=== PATIENT | female | born 1975 | race Caucasian/White ===

== ENCOUNTER 2018-07-06 08:22 | Emergency (ER) | payer OTHER, SELFPAY ==
[2018-07-06] MEDS ORDERED: ALBUTEROL 2.5 MG/3 ML NEB SOL ONE (08:55)
[2018-07-06] MEDS ORDERED: IPRATROPIUM BROM 0.5MG/2.5ML ONE (08:56)
[2018-07-06] MEDS ORDERED: predniSONE 20 MG TAB ONE (08:56)
--- NOTE | 2018-07-06 10:32 | ER ---
Nurse's Notes [facility] Name: Jodi Trevino Age: 43 yrs Sex: Female : 1975 Arrival Date: 07/06/2018 Time: 08:25 Bed 20 Private MD: Diagnosis: Unspecified asthma with (acute) exacerbation Presentation: 07/06 08:40 Presenting complaint: Patient states: pt has hx of asthma, started having pain in her iw chest when she takes a deep breath last night, also has headache, subj fever and chills, had a breathing treatment at 0400 this morning. Transition of care: patient was not received from another setting of care. Onset of symptoms was July 05, 2018. Risk Assessment: Do you want to hurt yourself or someone else? Patient reports no desire to harm self or others. Initial Sepsis Screen: Does the patient meet any 2 criteria? No. Patient's initial sepsis screen is negative. Does the patient have a suspected source of infection? No. Patient's initial sepsis screen is negative. Care prior to arrival: None. 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 - Social history:: Smoking status: Patient/guardian denies using tobacco, the patient reports quitting approximately 1 years ago. - Ebola Screening: : Patient negative for fever greater than or equal to 101.5 degrees Fahrenheit, and additional compatible Ebola Virus Disease symptoms Patient denies exposure to infectious person Patient denies travel to an Ebola-affected area in the 21 days before illness onset No symptoms or risks identified at this time. Screenin:01 Abuse screen: Denies threats or abuse. Nutritional screening: No deficits noted. em Tuberculosis screening: No symptoms or risk factors identified. Fall Risk None identified. Assessment: 09:02 General: Appears in no apparent distress. comfortable, Behavior is calm, cooperative. em Pain: Complains of pain in mid-sternal area Pain does not radiate. Pain began 1 day ago. Neuro: Level of Consciousness is awake, alert, obeys commands, Oriented to person, place, time, situation. Cardiovascular: Heart tones S1 S2 present Capillary refill < 3 seconds Patient's skin is warm and dry. Respiratory: Reports cough that is productive, pain with cough Airway is patent Respiratory effort is even, unlabored, Respiratory pattern is regular, symmetrical, Breath sounds with wheezes bilaterally. Onset: The symptoms/episode began/occurred yesterday, the patient has mild shortness of breath. GI: Abdomen is flat. : No signs and/or symptoms were reported regarding the genitourinary system. Derm: Skin is intact, Skin is pink, warm \T\ dry. Musculoskeletal: Range of motion: intact in all extremities. 09:40 Reassessment: Patient appears in no apparent distress at this time. Patient and/or em family updated on plan of care and expected duration. Pain level reassessed. Patient is alert, oriented x 3, equal unlabored respirations, skin warm/dry/pink. provider at bedside Patient states symptoms have improved. 10:42 Reassessment: Patient appears in no apparent distress at this time. Patient and/or em family updated on plan of care and expected duration. Pain level reassessed. Patient is alert, oriented x 3, equal unlabored respirations, skin warm/dry/pink. CTA orlin. lungs Patient states feeling better. Patient states symptoms have improved. Vital Signs: 08:56 BP 140 / 80; Pulse 99; Resp 18 S; Pulse Ox 98% on R/A; Weight 77.11 kg; Height 5 ft. 3 iw in. (160.02 cm); Pain 6/10; 09:39 BP 135 / 86; Pulse 101; Resp 22; Pulse Ox 100% on R/A; em 10:42 BP 136 / 84; Pulse 87; Resp 18; Pulse Ox 100% on R/A; em 08:56 Body Mass Index 30.11 (77.11 kg, 160.02 cm) iw ED Course: 08:25 Patient arrived in ED. mr 08:36 Manjeet Segovia NP is PHCP. pm1 08:36 Kenny Boss MD is Attending Physician. pm1 08:43 Felipe Gaxiola LVN is Primary Nurse. em 08:55 Triage completed. iw 09:01 Patient has correct armband on for positive identification. Pulse ox on. NIBP on. em 09:01 No provider procedures requiring assistance completed. Patient maintains SpO2 em saturation greater than 95% on room air. 09:02 Arm band placed on. em 10:52 Patient did not have IV access during this emergency room visit. em Administered Medications: 09:00 Drug: Albuterol - atroVENT (3:1) (2.5 mg - 0.5 mg) 3 ml Route: Nebulizer; em 09:38 Follow up: Response: No adverse reaction; Wheezing diminished em 09:00 Drug: predniSONE 60 mg Route: PO; em :38 Follow up: Response: No adverse reaction em Outcome: 10:31 Discharge ordered by MD. pm1 10: Discharged to home ambulatory. em 10: Condition: good 10:52 Discharge instructions given to patient, Instructed on discharge instructions, follow up and referral plans. medication usage, Demonstrated understanding of instructions, follow-up care, medications, Prescriptions given X 2. 10:53 Patient left the ED. em Signatures: Jannie Cha, Felipe, CURBING STONECUTTER CURBING STONECUTTER em Christi Quiroz, KIM RN iw Manjeet Segovia NP WAGE AND HOUR INVESTIGATOR pm1 Corrections: (The following items were deleted from the chart) 08:57 08:56 BP 140 / 80; Pulse 99bpm; Resp 18bpm; Spontaneous; 77.11 kg; Height 5 ft. 3 in.; iw BMI: 30.1; Pain 6/10; iw
--- NOTE | 2018-07-06 10:32 | EDPHYS ---
Physician Documentation [facility] Name: Jodi Trevino Age: 43 yrs Sex: Female : 1975 Arrival Date: 07/06/2018 Time: 08:25 Bed 20 Private MD: ED Physician Kenny Boss HPI: 07/06 09:00 This 43 yrs old Female presents to ER via Ambulatory with complaints of pm1 Asthma Exacerbation. 09:00 The patient presents to the emergency department with wheezing, Current therapy: pm1 albuterol nebs, that began Weather change, the patient was reported to have audible wheezing, Pre-hospital care: med neb, albuterol. Onset: The symptoms/episode began/occurred last night. Modifying factors: The symptoms are alleviated by nothing, the symptoms are aggravated by cold weather. Associated signs and symptoms: Pertinent positives: Chest pain with deep breathing, Pertinent negatives: fever, nausea, vomiting. Severity of symptoms: in the emergency department the symptoms are unchanged. The patient has experienced similar episodes in the past, several times. The patient has not recently seen a physician. 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 - Social history:: Smoking status: Patient/guardian denies using tobacco, the patient reports quitting approximately 1 years ago. - Ebola Screening: : Patient negative for fever greater than or equal to 101.5 degrees Fahrenheit, and additional compatible Ebola Virus Disease symptoms Patient denies exposure to infectious person Patient denies travel to an Ebola-affected area in the 21 days before illness onset No symptoms or risks identified at this time. ROS: 09:00 Constitutional: Negative for fever, chills, and weight loss, Eyes: Negative for injury, pm1 pain, redness, and discharge, ENT: Negative for injury, pain, and discharge, Neck: Negative for injury, pain, and swelling, Cardiovascular: Negative for chest pain, palpitations, and edema. 09:00 Abdomen/GI: Negative for abdominal pain, nausea, vomiting, diarrhea, and constipation, Back: Negative for injury and pain, : Negative for injury, bleeding, discharge, and swelling, MS/Extremity: Negative for injury and deformity, Skin: Negative for injury, rash, and discoloration, Neuro: Negative for headache, weakness, numbness, tingling, and seizure. 09:00 Respiratory: Positive for shortness of breath, wheezing. Exam: 09:00 Constitutional: This is a well developed, well nourished patient who is awake, alert, pm1 and in no acute distress. Head/Face: Normocephalic, atraumatic. Eyes: Pupils equal round and reactive to light, extra-ocular motions intact. Lids and lashes normal. Conjunctiva and sclera are non-icteric and not injected. Cornea within normal limits. Periorbital areas with no swelling, redness, or edema. ENT: Nares patent. No nasal discharge, no septal abnormalities noted. Tympanic membranes are normal and external auditory canals are clear. Oropharynx with no redness, swelling, or masses, exudates, or evidence of obstruction, uvula midline. Mucous membranes moist. Neck: Trachea midline, no thyromegaly or masses palpated, and no cervical lymphadenopathy. Supple, full range of motion without nuchal rigidity, or vertebral point tenderness. No Meningismus. Chest/axilla: Normal chest wall appearance and motion. Nontender with no deformity. No lesions are appreciated. Cardiovascular: Regular rate and rhythm with a normal S1 and S2. No gallops, murmurs, or rubs. Normal PMI, no JVD. No pulse deficits. 09:00 Abdomen/GI: Soft, non-tender, with normal bowel sounds. No distension or tympany. No guarding or rebound. No evidence of tenderness throughout. Back: No spinal tenderness. No costovertebral tenderness. Full range of motion. Skin: Warm, dry with normal turgor. Normal color with no rashes, no lesions, and no evidence of cellulitis. MS/ Extremity: Pulses equal, no cyanosis. Neurovascular intact. Full, normal range of motion. 09:00 Respiratory: the patient does not display signs of respiratory distress, Respirations: normal, Breath sounds: wheezing: is heard diffusely. 09:00 Neuro: Orientation: is normal, Motor: is normal, moves all fours. 10:30 Respiratory: Breath sounds: are clear throughout, no bronchial sounds, no decreased pm1 breath sounds, no rales, rhonchi, no stridor, no wheezing. Vital Signs: 08:56 BP 140 / 80; Pulse 99; Resp 18 S; Pulse Ox 98% on R/A; Weight 77.11 kg; Height 5 ft. 3 iw in. (160.02 cm); Pain 6/10; 09:39 BP 135 / 86; Pulse 101; Resp 22; Pulse Ox 100% on R/A; em 10:42 BP 136 / 84; Pulse 87; Resp 18; Pulse Ox 100% on R/A; em 08:56 Body Mass Index 30.11 (77.11 kg, 160.02 cm) iw MDM: 08:36 Patient medically screened. pm1 10:30 Data reviewed: vital signs. Data interpreted: Pulse oximetry: on room air is 100 %. pm1 Interpretation: normal. Counseling: I had a detailed discussion with the patient and/or guardian regarding: the historical points, exam findings, and any diagnostic results supporting the discharge/admit diagnosis, the need for outpatient follow up, to return to the emergency department if symptoms worsen or persist or if there are any questions or concerns that arise at home. Administered Medications: 09:00 Drug: Albuterol - atroVENT (3:1) (2.5 mg - 0.5 mg) 3 ml Route: Nebulizer; em 09:38 Follow up: Response: No adverse reaction; Wheezing diminished em 09:00 Drug: predniSONE 60 mg Route: PO; em 09:38 Follow up: Response: No adverse reaction em Disposition: 07/06/18 10:31 Discharged to Home. Impression: Unspecified asthma with (acute) exacerbation. - Condition is Stable. - Discharge Instructions: Asthma, Adult, How to Use an Inhaler. - Prescriptions for Prednisone 20 mg Oral Tablet - take 3 tablet by ORAL route once daily for 5 days; 15 tablet. Albuterol Sulfate 90 mcg/actuation - inhale 1-2 puff by INHALATION route every 4-6 hours; 1 Inhaler. - Medication Reconciliation Form, Thank You Letter, Antibiotic Education form. - Follow up: Emergency Department; When: As needed; Reason: Worsening of condition. Follow up: Private Physician; When: 2 - 3 days; Reason: Recheck today's complaints, Continuance of care, Re-evaluation by your physician. - Problem is new. - Symptoms have improved. Addendum: 07/07/2018 13:39 Co-signature as Attending Physician, Kenny Boss MD I agree with the assessment and k dr plan of care. Signatures: Kenny Boss MD MD [facility] Felipe Gaxiola, WELL LOGGING CAPTAIN WELL LOGGING CAPTAIN em Christi Quiroz, RN RN iw Manjeet Segovia, BETHEL KEY FILER pm1 Corrections: (The following items were deleted from the chart) 07/06 10:53 10:31 07/06/2018 10:31 Discharged to Home. Impression: Unspecified asthma with (acute) em exacerbation. Condition is Stable. Forms are Medication Reconciliation Form, Thank You Letter, Antibiotic Education, Prescription Opioid Use. Follow up: Emergency Department; When: As needed; Reason: Worsening of condition. Follow up: Private Physician; When: 2 - 3 days; Reason: Recheck today's complaints, Continuance of care, Re-evaluation by your physician. Problem is new. Symptoms have improved. pm1
== END 2018-07-06 10:53 | disposition home or self-care (01) ==
LOC: ER 08:22
DX: J45.901 Unspecified asthma with (acute) exacerbation (principal); Z87.891 Personal history of nicotine dependence
CPT/HCPCS: 94640; 99284; J7512

== ENCOUNTER 2018-10-27 11:47 | Emergency (ER) | payer SELFPAY ==
--- NOTE | 2018-10-27 12:42 | RAD REPORT ---
EXAM DESCRIPTION: CT - [id number] - 10/27/2018 12:32 pm CLINICAL HISTORY: Syncopal event, fall, head and neck injury COMPARISON: None. TECHNIQUE: Axial 5 mm thick images of the head were obtained. Axial 2 mm thick images of the cervic al spine were obtained with sagittal and coronal reconstruction images generated and reviewed. All CT scans are performed using dose optimization technique as appropriate and may include automated exposure control or mA/KV adjustment according to patient size. FINDINGS: No intracranial hemorrhage, mass, edema or acute intracranial finding. No suspicion for ac [place] infarction. No extra-axial fluid collections. Mastoid air cells and paranasal sinuses are clear. No globe or orbit abnormality seen. Ventricles are normal. Cervical body height and alignment are normal. C5-6 and C6-7 disc space narrowing and endplate spurri ng changes are noted. Minimal bony foraminal encroachment at C6-7. No fracture or acute bony abnormal ity. No paraspinal mass or hematoma. IMPRESSION: Negative CT head examination for acute or significant finding. Negative CT cervical spine examination for acute or significant finding.
[2018-10-27 12:59] LABS: ALT/SGPT 27 U/L (12-78); AST/SGOT 16 U/L (15-37); Absolute Lymphocytes (CBC) 2.2 K/uL (0.7-4.9); Absolute Monocytes 0.4 K/uL (0.1-1.3); Absolute Neutrophil 3.3 K/uL (1.8-8.0); Albumin 3.6 g/dL (3.4-5.0); Alkaline Phosphatase 69 U/L (45-117); BUN Blood Urea Nitrogen 12 mg/dL (7-18); Basophils % 0.9 % (0-1.3); Bicarbonate 23 mmol/L (21-32); Bilirubin Direct < 0.1 mg/dL (0-0.2); Bilirubin Total 0.2 mg/dL (0.2-1.0); Eosinophils % 6.2 % (0-4.4); Glucose Level 118 mg/dL (74-106); Hematocrit 39.5 % (36.0-45.0); Lymphocytes % 34.7 % (15.3-44.8); MPV 10.5 fL (7.6-11.3); Magnesium 1.9 mg/dL (1.8-2.4); Monocytes % 5.9 % (3.3-12.3); NT PRO-BNP 69 pg/mL (<125); Potassium 3.9 mmol/L (3.5-5.1); Protein, Total 6.6 g/dL (6.4-8.2); RBC Red Blood Cell Count 4.17 M/uL (3.86-4.86); Sodium Level 141 mmol/L (136-145); Troponin (Emerg Dept Use Only) < 0.02 ng/mL (0.0-0.045)
[2018-10-27 13:00] LABS: Protime INR 0.97
[2018-10-27] MEDS ORDERED: TRAMADOL HCL 50 MG TAB ONE (14:02)
[2018-10-27] MEDS ORDERED: IBUPROFEN 400 MG TAB ONE ×2 (14:02→14:05)
[2018-10-27] MEDS ORDERED: IBUPROFEN 200 MG TAB PO ONE (14:03)
--- NOTE | 2018-10-27 14:12 | RAD REPORT ---
EXAM DESCRIPTION: Shoulder Right 2 View - 10/27/2018 12:42 pm CLINICAL HISTORY: Fall, right shoulder pain COMPARISON: None. TECHNIQUE: Internal and external rotation views of the right shoulder were obtained. FINDINGS: There is no fracture or dislocation. AC joint is normal in appearance. No acute or suspic ious findings. IMPRESSION: Negative two-view right shoulder examination.
--- NOTE | 2018-10-27 14:13 | RAD REPORT ---
EXAM DESCRIPTION: RAD - Chest Single View - 10/27/2018 12:44 pm CLINICAL HISTORY: Fall, chest pain, syncope COMPARISON: March 2008 TECHNIQUE: AP portable chest image was obtained 1237 hours . FINDINGS: No pulmonary contusion or acute lung parenchymal process. No failure or volume overload. H eart and vasculature are normal. No measurable pleural effusion and no pneumothorax. No acute bony ab normality seen. No acute aortic findings suspected. IMPRESSION: No acute cardiopulmonary process. No significant interval changes.
--- NOTE | 2018-10-27 14:14 | RAD REPORT ---
EXAM DESCRIPTION: RAD - Forearm Right - 10/27/2018 12:42 pm CLINICAL HISTORY: Fall, right forearm pain COMPARISON: None. FINDINGS: No fracture is identified. There is no dislocation or periosteal reaction noted. No acute or destructive bone or joint finding. Patient has an approximately 5 millimeter negative ulnar varian ce as a developmental variant. This is not an acutely significant finding that can be associated with wrist pain symptoms. No foreign body or other soft tissue abnormality. IMPRESSION: Negative right forearm examination for fracture or acute finding. Nonacute findings detailed in the body of the report.
--- NOTE | 2018-10-27 14:16 | RAD REPORT ---
EXAM DESCRIPTION: RAD - Hand Right 3 View - 10/27/2018 12:44 pm CLINICAL HISTORY: Fall, hand pain COMPARISON: None. FINDINGS: No fracture is identified. There is no dislocation or periosteal reaction noted. No forei gn body or other soft tissue abnormality. No significant degenerative changes are present. IMPRESSION: Negative right hand examination.
--- NOTE | 2018-10-27 14:32 | EDPHYS ---
Physician Documentation [facility] Name: Jodi Trevino Age: 43 yrs Sex: Female : 1975 Arrival Date: 10/27/2018 Time: 11:48 Bed 8 Private MD: Kiko Vail T ED Physician Yvan Jimenez HPI: 10/27 12:10 This 43 yrs old Female presents to ER via Ambulatory with complaints of Hand cp Injury. 12:10 The patient has experienced syncope, collapsed, lost consciousness. Onset: The cp symptoms/episode began/occurred 45 minute(s) ago. Duration: This was a single episode, that lasted an unknown period of time. Context: the episode(s) was witnessed, by no one, occurred at home, occurred while the patient was walking, Just prior to the episode the patient experienced no apparent symptoms. Associated injury: Right upper extremity: right hand and right forearm. 12:10 Associated signs and symptoms: Pertinent negatives: abdominal pain, chest pain, cp dizziness, headache, numbness, palpitations, seizure. Current symptoms: right hand and right forearm pain. Patient reports she has just finished neb treatment at home when she got up to take a Claritin. Patient reports she was in kitchen and believes she slipped on floor. was outside and when he returned observed her awake and lying on floor. 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 - Social history:: Smoking status: Patient/guardian denies using tobacco. - Immunization history: Last tetanus immunization: unknown. - Ebola Screening: : No symptoms or risks identified at this time. ROS: 12:20 Constitutional: Negative for body aches, chills, fever, poor PO intake. cp 12:20 Eyes: Negative for injury, pain, redness, and discharge. cp 12:20 ENT: Negative for drainage from ear(s), ear pain, sore throat, difficulty swallowing, difficulty handling secretions. 12:20 Cardiovascular: Negative for chest pain, edema, palpitations. 12:20 Respiratory: Negative for cough, shortness of breath, wheezing. 12:20 Abdomen/GI: Negative for abdominal pain, nausea, vomiting, and diarrhea, constipation, black/tarry stool, rectal bleeding. 12:20 MS/extremity: Positive for injury or acute deformity, pain, tenderness, of the right hand and right forearm, Negative for paresthesias. 12:20 Skin: Negative for cellulitis, rash. 12:20 Neuro: Positive for syncope, Negative for altered mental status, dizziness, headache, numbness, weakness. 12:20 All other systems are negative. Exam: 12:15 ECG was reviewed by the Attending Physician. cp 12:25 Constitutional: The patient appears in no acute distress, alert, awake, cp non-diaphoretic, non-toxic, well developed, well nourished. 12:25 Head/Face: Normocephalic, atraumatic. cp 12:25 Eyes: Pupils equal round and reactive to light, extra-ocular motions intact. Lids and cp lashes normal. Conjunctiva and sclera are non-icteric and not injected. Cornea within normal limits. Periorbital areas with no swelling, redness, or edema. ENT: Nares patent. No nasal discharge, no septal abnormalities noted. Tympanic membranes are normal and external auditory canals are clear. Oropharynx with no redness, swelling, or masses, exudates, or evidence of obstruction, uvula midline. Mucous membranes moist. 12:25 Neck: C-spine: vertebral tenderness, is not appreciated, crepitus, is not appreciated, ROM/movement: pain, is not appreciated, limited range of motion, is not appreciated, nuchal rigidity, is not appreciated. 12:25 Chest/axilla: Inspection: normal, Palpation: is normal, no crepitus, no tenderness. 12:25 Cardiovascular: Rate: normal, Rhythm: regular, Pulses: Pulses are 2+ in right radial artery and left radial artery. Edema: is not appreciated, JVD: is not appreciated. 12:25 Respiratory: the patient does not display signs of respiratory distress, Respirations: normal, no use of accessory muscles, no retractions, no splinting, no tachypnea, labored breathing, is not present, Breath sounds: are clear throughout, no decreased breath sounds, no stridor, no wheezing. 12:25 Abdomen/GI: Inspection: abdomen appears normal, Bowel sounds: active, all quadrants, Palpation: abdomen is soft and non-tender, in all quadrants, rebound tenderness, is not appreciated, involuntary guarding, is not appreciated. 12:25 Back: pain, is absent, ROM is normal. cp 12:25 Musculoskeletal/extremity: Extremities: grossly normal except: noted in the right forearm and right hand: pain, tenderness. 12:25 Skin: cellulitis, is not appreciated, no rash present. 12:25 Neuro: Orientation: to person, place \T\ time. Mentation: is normal, Cerebellar function: is grossly normal, Motor: moves all fours, strength is normal, Sensation: is normal, Gait: is steady. Vital Signs: 11:54 BP 142 / 93; Pulse 97; Resp 18; Temp 97.0; Pulse Ox 98% on R/A; Weight 77.11 kg; Height la1 5 ft. 4 in. (162.56 cm); 12:10 BP 140 / 91; Pulse 80; Resp 16 S; Pulse Ox 100% on R/A; Pain 8/10; la1 12:45 BP 128 / 88; Pulse 65; Resp 16 S; Pulse Ox 100% on R/A; la1 13:26 BP 122 / 89 Supine; Pulse 64; Resp 16 S; Pulse Ox 100% on R/A; la1 13:28 BP 141 / 97 Sitting; Pulse 73; Resp 16 S; Pulse Ox 99% on R/A; la1 13:30 BP 137 / 97 Standing; Pulse 79; Resp 16 S; Pulse Ox 99% on R/A; la1 14:15 BP 130 / 89; Pulse 70; Resp 16 S; Pulse Ox 100% on R/A; jl7 11:54 Body Mass Index 29.18 (77.11 kg, 162.56 cm) la1 Joey Coma Score: 11:54 Eye Response: spontaneous(4). Verbal Response: oriented(5). Motor Response: obeys la1 commands(6). Total: 15. Trauma Score (Adult): 11:54 Eye Response: spontaneous(1); Verbal Response: oriented(1); Motor Response: obeys la1 commands(2); Systolic BP: > 89 mm Hg(4); Respiratory Rate: 10 to 29 per min(4); Joey Score: 15; Trauma Score: 12 12:10 Eye Response: spontaneous(1); Verbal Response: oriented(1); Motor Response: obeys la1 commands(2); Systolic BP: > 89 mm Hg(4); Respiratory Rate: 10 to 29 per min(4); [place] Score: 15; Trauma Score: 12 12:45 Eye Response: spontaneous(1); Verbal Response: oriented(1); Motor Response: obeys la1 commands(2); Systolic BP: > 89 mm Hg(4); Respiratory Rate: 10 to 29 per min(4); Joey Score: 15; Trauma Score: 12 13:26 Eye Response: spontaneous(1); Verbal Response: oriented(1); Motor Response: obeys la1 commands(2); Systolic BP: > 89 mm Hg(4); Respiratory Rate: 10 to 29 per min(4); Joey Score: 15; Trauma Score: 12 MDM: 12:02 Patient medically screened. 14:30 Data reviewed: vital signs, nurses notes, lab test result(s), EKG, radiologic studies, cp CT scan, plain films. 14:30 Test interpretation: by ED physician or midlevel provider: ECG, plain radiologic cp studies. Counseling: I had a detailed discussion with the patient and/or guardian regarding: the historical points, exam findings, and any diagnostic results supporting the discharge/admit diagnosis, lab results, radiology results, the need for outpatient follow up, a family practitioner, to return to the emergency department if symptoms worsen or persist or if there are any questions or concerns that arise at home. 02 12:14 Order name: Basic Metabolic Panel; Complete Time: 13:02 cp 02/ 13:02 Interpretation: Normal except: CL 110; GLUC 118; CA 8.4. cp 02/ 12:14 Order name: CBC with Diff; Complete Time: 13:44 cp 02/ 13:44 Interpretation: Normal except: EOSINOPHIL % 6.2. cp 02/ 12:14 Order name: LFT's; Complete Time: 13:02 cp 02/02 12:14 Order name: Magnesium; Complete Time: 13:02 cp 02/02 12:14 Order name: NT PRO-BNP; Complete Time: 13:02 cp 02/ 12:14 Order name: PT-INR; Complete Time: 13:04 cp / 12:14 Order name: CT Head C Spine; Complete Time: 13:02 cp 02/ 13:04 Interpretation: Reviewed report. cp 10/27 12:14 Order name: Troponin (emerg Dept Use Only); Complete Time: 13:02 cp 10/27 12:14 Order name: XRAY Chest (1 view); Complete Time: 14:26 cp 10/27 12:14 Order name: XRAY Forearm RIGHT; Complete Time: 14:26 cp 10/27 14:26 Interpretation: Reviewed. cp 10/27 12:14 Order name: XRAY Hand RIGHT 3 View; Complete Time: 14:26 cp 10/27 13:09 Order name: Glucose, Ancillary Testing; Complete Time: 13:18 EDMS 10/27 13:18 Interpretation: GLUC,ANCIL 124; Reviewed. 10/27 15:06 Order name: Urine Dipstick--Ancillary (enter results) eb 10/27 15:06 Order name: Urine --Ancillary (enter results) eb 10/27 12:14 Order name: EKG; Complete Time: 12:15 cp 10/27 12:14 Order name: Cardiac monitoring; Complete Time: 12:26 cp 10/27 12:14 Order name: EKG - Nurse/Tech; Complete Time: 12:26 cp 10/27 12:14 Order name: IV Saline Lock; Complete Time: 12:26 cp 10/27 12:14 Order name: Labs collected and sent; Complete Time: 12:26 cp 10/27 12:14 Order name: O2 Per Protocol; Complete Time: 12:26 cp 10/27 12:14 Order name: O2 Sat Monitoring; Complete Time: 12:26 cp 10/27 12:14 Order name: XRAY Shoulder RIGHT 2 view; Complete Time: 14:26 cp 10/27 13:05 Order name: Orthostatics; Complete Time: 13:38 cp 10/27 14:28 Order name: Splint - Ulnar Gutter; Complete Time: 14:49 cp 10/27 14:28 Order name: Urine Test (obtain specimen); Complete Time: 15:45 cp 10/27 14:28 Order name: Urine Dipstick-Ancillary (obtain specimen); Complete Time: 15:45 cp EC:15 Rate is 73 beats/min. Rhythm is regular. UT interval is normal. QRS interval is normal. cp QT interval is normal. Interpreted by me. Reviewed by me. Administered Medications: 13:58 Drug: UltRAM 50 mg Route: PO; la1 14:45 Follow up: Response: No adverse reaction; Pain is decreased jl7 13:58 Drug: Ibuprofen 800 mg Route: PO; la1 14:45 Follow up: Response: No adverse reaction; Pain is decreased jl7 Disposition: 18:52 Co-signature as Attending Physician, Yvan Jimenez MD Available for consultation at ps1 all times . Disposition: 10/27/18 14:31 Discharged to Home. Impression: Pain in right hand - from fall, Syncope and collapse. - Condition is Stable. - Discharge Instructions: Syncope, Hand Pain. - Prescriptions for Ibuprofen 800 mg Oral Tablet - take 1 tablet by ORAL route every 8 hours As needed take with food; 30 tablet. Ultram 50 mg Oral Tablet - take 1 tablet by ORAL route every 6 hours As needed; 12 tablet. - Medication Reconciliation Form, Thank You Letter, Antibiotic Education, Prescription Opioid Use form. - Follow up: Kiko Vail MD; When: 2 - 3 days; Reason: Recheck today's complaints. - Problem is new. - Symptoms have improved. Signatures: Dispatcher [employer] EDMS Valdez Cedillo RN RN la1 Angel Jorge PA PA cp Morgan Castillo RN RN jl7 Yvan Jimenez MD MD ps1 Corrections: (The following items were deleted from the chart) 13:02 13:02 Normal except: CL 110; GLUC 118. cp cp 14:32 14:31 10/27/2018 14:31 Discharged to Home. Impression: Pain in right hand - from fall; cp Fall on same level from slipping, tripping and stumbling. Condition is Stable. Forms are Medication Reconciliation Form, Thank You Letter, Antibiotic Education, Prescription Opioid Use. Follow up: Kiko Vail; When: 2 - 3 days; Reason: Recheck today's complaints. Problem is new. Symptoms have improved. cp 15:44 14:32 10/27/2018 14:31 Discharged to Home. Impression: Pain in right hand - from fall; jl7 Syncope and collapse. Condition is Stable. Discharge Instructions: Hand Pain, Syncope. Prescriptions for Ibuprofen 800 mg Oral Tablet - take 1 tablet by ORAL route every 8 hours As needed take with food; 30 tablet, Ultram 50 mg Oral Tablet - take 1 tablet by ORAL route every 6 hours As needed; 12 tablet. and Forms are Medication Reconciliation Form, Thank You Letter, Antibiotic Education, Prescription Opioid Use. Follow up: Kiko Vail; When: 2 - 3 days; Reason: Recheck today's complaints. Problem is new. Symptoms have improved. cp
--- NOTE | 2018-10-27 14:32 | ER ---
Nurse's Notes [facility] Name: Jodi Trevino Age: 43 yrs Sex: Female : 1975 Arrival Date: 10/27/2018 Time: 11:48 Bed 8 Private MD: Kiko Vail T Diagnosis: Pain in right hand-from fall;Syncope and collapse Presentation: 10/27 11:53 Presenting complaint: Patient states: about 30 minutes ago I was in the kitchen and I la1 woke up face down on the floor, I am not sure how I fell, I could have slipped but I do not remember. Pt reports pain in right shoulder all the way to right hand. Deneis head/neck pain, no midline C-spine tenderness. Transition of care: patient was not received from another setting of care. Onset of symptoms was October 27, 2018. Risk Assessment: Do you want to hurt yourself or someone else? Patient reports no desire to harm self or others. Initial Sepsis Screen: Does the patient meet any 2 criteria? No. Patient's initial sepsis screen is negative. Does the patient have a suspected source of infection? No. Patient's initial sepsis screen is negative. Care prior to arrival: None. 11:53 Method Of Arrival: Ambulatory la1 11:53 Acuity: MAGUE 2 la1 11:53 Mechanism of Injury: Fall from standing position. Trauma event details: Injury occurred jl7 in the [facility], Injury occurred: at home. Injury occurred: October 27, 2018. 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 - Social history:: Smoking status: Patient/guardian denies using tobacco. - Immunization history: Last tetanus immunization: unknown. - Ebola Screening: : No symptoms or risks identified at this time. Screenin:15 Abuse screen: Denies threats or abuse. Denies injuries from another. Nutritional jl7 screening: No deficits noted. Tuberculosis screening: No symptoms or risk factors identified. Fall Risk Fall in past 12 months (25 points). IV access (20 points). Total Nolasco Fall Scale indicates Low Risk Score (25-44 pts). Fall prevention measures have been instituted. Side Rails Up X 2 Placed close to Nursing Station Frequent Obs/Assesments occuring As available Patient and Family Educated on Fall Prevention Program and strategies. Primary Survey: 12:00 NO uncontrolled hemorrhage observed. A: The patient is alert. Airway: patent. jl7 Breathing/Chest: Respiratory pattern: regular, Respiratory effort: spontaneous, unlabored, Breath sounds: clear, bilaterally. Chest inspection: symmetrical rise and fall of the chest. Circulation: Skin color: pink. Disability Alert. Exposure/Environment: There is no evidence of uncontrolled external bleeding. No obvious injuries are noted at this time. 12:15 Reassessment Breathing/Chest Respiratory pattern Regular Respiratory effort Spontaneous jl7 Unlabored Chest inspection Symmetrical Circulation Color [place] Disability Alert. Assessment: 12:15 General: Appears in no apparent distress. uncomfortable, Behavior is cooperative, jl7 anxious. Pain: Complains of pain in right hand Pain currently is 8 out of 10 on a pain scale. Pain began 1 hour ago. Is continuous. Neuro: Level of Consciousness is awake, alert, obeys commands, Oriented to person, place, time, situation. Cardiovascular: Heart tones present Patient's skin is warm and dry. Respiratory: Airway is patent Respiratory effort is even, unlabored, Respiratory pattern is regular, symmetrical. GI: No signs and/or symptoms were reported involving the gastrointestinal system. : No signs and/or symptoms were reported regarding the genitourinary system. EENT: No signs and/or symptoms were reported regarding the EENT system. Derm: Skin is pink, warm \T\ dry. Musculoskeletal: Range of motion: intact in all extremities. 13:10 Reassessment: Patient appears in no apparent distress at this time. Patient and/or ca1 family updated on plan of care and expected duration. Pain level reassessed. Patient is alert, oriented x 3, equal unlabored respirations, skin warm/dry/pink. 14:20 Reassessment: Patient appears in no apparent distress at this time. Patient is alert, ca1 oriented x 3, equal unlabored respirations, skin warm/dry/pink. Vital Signs: 11:54 BP 142 / 93; Pulse 97; Resp 18; Temp 97.0; Pulse Ox 98% on R/A; Weight 77.11 kg; Height la1 5 ft. 4 in. (162.56 cm); 12:10 BP 140 / 91; Pulse 80; Resp 16 S; Pulse Ox 100% on R/A; Pain 8/10; la1 12:45 BP 128 / 88; Pulse 65; Resp 16 S; Pulse Ox 100% on R/A; la1 13:26 BP 122 / 89 Supine; Pulse 64; Resp 16 S; Pulse Ox 100% on R/A; la1 13:28 BP 141 / 97 Sitting; Pulse 73; Resp 16 S; Pulse Ox 99% on R/A; la1 13:30 BP 137 / 97 Standing; Pulse 79; Resp 16 S; Pulse Ox 99% on R/A; la1 14:15 BP 130 / 89; Pulse 70; Resp 16 S; Pulse Ox 100% on R/A; jl7 11:54 Body Mass Index 29.18 (77.11 kg, 162.56 cm) la1 Joey Coma Score: 11:54 Eye Response: spontaneous(4). Verbal Response: oriented(5). Motor Response: obeys la1 commands(6). Total: 15. Trauma Score (Adult): 11:54 Eye Response: spontaneous(1); Verbal Response: oriented(1); Motor Response: obeys la1 commands(2); Systolic BP: > 89 mm Hg(4); Respiratory Rate: 10 to 29 per min(4); [place] Score: 15; Trauma Score: 12 12:10 Eye Response: spontaneous(1); Verbal Response: oriented(1); Motor Response: obeys la1 commands(2); Systolic BP: > 89 mm Hg(4); Respiratory Rate: 10 to 29 per min(4); Joey Score: 15; Trauma Score: 12 12:45 Eye Response: spontaneous(1); Verbal Response: oriented(1); Motor Response: obeys la1 commands(2); Systolic BP: > 89 mm Hg(4); Respiratory Rate: 10 to 29 per min(4); Joey Score: 15; Trauma Score: 12 13:26 Eye Response: spontaneous(1); Verbal Response: oriented(1); Motor Response: obeys la1 commands(2); Systolic BP: > 89 mm Hg(4); Respiratory Rate: 10 to 29 per min(4); [place] Score: 15; Trauma Score: 12 ED Course: 11:48 Patient arrived in ED. rg4 11:48 Kiko Vail MD is Private Physician. rg4 11:54 Triage completed. la1 11:55 Arm band placed on left wrist. la1 11:57 Angel Jorge PA is PHCP. cp 11:57 Yvan Jimenez MD is Attending Physician. cp 11:58 Morgan Castillo RN is Primary Nurse. jl7 12:00 Patient maintains SpO2 saturation greater than 95% on room air. jl7 12:00 Thermoregulation: warm blanket given to patient. jl7 12:15 Patient has correct armband on for positive identification. Placed in gown. Bed in low jl7 position. Call light in reach. Side rails up X 1. residential monitor on. Pulse ox on. NIBP on. Warm blanket given. 12:15 Initial lab(s) drawn, by me, sent to lab. EKG done, by ED staff, reviewed by Angel BARNES. Inserted saline lock: 20 gauge in left antecubital area, using aseptic technique. Blood collected. 12:33 CT Head C Spine In Process Unspecified. EDMS 12:41 XRAY Chest (1 view) In Process Unspecified. EDMS 12:41 XRAY Forearm RIGHT In Process Unspecified. EDMS 12:41 XRAY Hand RIGHT 3 View In Process Unspecified. EDMS 12:42 XRAY Shoulder RIGHT 2 view In Process Unspecified. EDMS 14:29 Kiko Vail MD is Referral Physician. cp 14:48 Orthoglass splint: Ulnar gutter/Boxer splint applied on right forearm. Radial pulse jb1 present and within normal limits before and after application of splint. Capillary refill was two seconds before and after application of splint. 14:55 No provider procedures requiring assistance completed. IV discontinued, intact, jl7 bleeding controlled, No redness/swelling at site. Pressure dressing applied. Administered Medications: 13:58 Drug: UltRAM 50 mg Route: PO; la1 14:45 Follow up: Response: No adverse reaction; Pain is decreased jl7 13:58 Drug: Ibuprofen 800 mg Route: PO; la1 14:45 Follow up: Response: No adverse reaction; Pain is decreased jl7 Intake: 14:55 PO: 0ml; Total: 0ml. jl7 Output: 14:55 Urine: 200ml (Voided); Total: 200ml. jl7 Outcome: 14:31 Discharge ordered by MD. hayes 14:55 Discharged to home ambulatory. jl7 14:55 Condition: stable 14:55 Discharge instructions given to patient, Instructed on discharge instructions, follow up and referral plans. medication usage, Demonstrated understanding of instructions, follow-up care, medications, Prescriptions given X 2. 14:55 Patient's length of stay was not longer than 2 hours. jl7 15:44 Patient left the ED. jl7 Signatures: Dispatcher [employer] EDMS Jona Monzon jb1 Valdez Cedillo RN RN la1 Angel Jorge PA PA cp Garcia, Rubi rg4 Morgan Castillo RN RN jl7 Stephani Timmons RN RN ca1 Corrections: (The following items were deleted from the chart) 11:55 11:53 Acuity: MAGUE 3 la1 la1 12:28 12:26 General: Appears in no apparent distress. uncomfortable, Behavior is cooperative, jl7 appropriate for age, anxious, jl7 12:28 12:26 Pain: Complains of pain in right hand jl7 jl7 12:28 12:26 Musculoskeletal: No signs and/or symptoms reported regarding the musculoskeletal jl7 system. jl7 15:40 15:40 Patient's length of stay was not longer than 2 hours. jl7 jl7
[2018-10-27 18:44] LABS: Urine Blood 1+ (NEG); Urine Glucose NEGATIVE (NEG); Urine Protein NEGATIVE (NEG)
--- NOTE | 2018-10-28 06:20 | EKG ---
Test Date: 2018-10-27 Test Time: 12:00:43 Adjunct Latin Professor: YANETH MEASUREMENT RESULTS: Intervals: Rate: 73 LA: 122 QRSD: 88 QT: 382 QTc: 420 [place]: P: 60 LA: 122 QRS: 32 T: 56 INTERPRETIVE STATEMENTS: Normal sinus rhythm Normal ECG Compared to ECG 04/24/2008 13:02:41 Sinus tachycardia no longer present Ventricular premature complex(es) no longer present Electronically Signed On 10-28-18 06:16:44 CUSTOMER PRICING MANAGER by Melecio Madden
== END 2018-10-27 15:44 | disposition home or self-care (01) ==
LOC: ER 11:47
DX: M79.641 Pain in right hand (principal); W01.0XXA Fall on same level from slipping, tripping and stumbling without subsequent striking against object, initial encounter; Y93.89 Activity, other specified; Y92.000 Kitchen of unspecified non-institutional (private) residence as the place of occurrence of the external cause
CPT/HCPCS: 36415; 70450; 71045; 72125; 80048; 80076; 81003; 81025; 82962; 83735; 83880; 84484; 85025; 85610; 93005; 99285

== ENCOUNTER 2018-11-07 23:30 | Emergency (ER) | payer SELFPAY ==
[2018-11-08] MEDS ORDERED: LEVALBUTEROL 1.25 MG/3 ML NEB ONE (00:36)
[2018-11-08] MEDS ORDERED: DEXAMETHASONE 4 MG/ML VIAL ONE (00:36)
[2018-11-08] MEDS ORDERED: NA CHLORIDE 0.9% 1,000 ML ONE (00:36)
[2018-11-08 01:11] LABS: Absolute Lymphocytes (CBC) 2.3 K/uL (0.7-4.9); Absolute Monocytes 0.4 K/uL (0.1-1.3); Absolute Neutrophil 5.8 K/uL (1.8-8.0); Basophils % 0.6 % (0-1.3); Eosinophils % 7.1 % (0-4.4); Hematocrit 35.5 % (36.0-45.0); MPV 10.1 fL (7.6-11.3); Monocytes % 4.2 % (3.3-12.3); RBC Red Blood Cell Count 3.72 M/uL (3.86-4.86)
[2018-11-08 01:13] LABS: Protime INR 0.99
[2018-11-08 01:26] LABS: ALT/SGPT 20 U/L (12-78); AST/SGOT 11 U/L (15-37); Albumin 3.3 g/dL (3.4-5.0); Alkaline Phosphatase 67 U/L (45-117); BUN Blood Urea Nitrogen 16 mg/dL (7-18); Bicarbonate 23 mmol/L (21-32); Bilirubin Direct < 0.1 mg/dL (0-0.2); Bilirubin Total 0.2 mg/dL (0.2-1.0); Glucose Level 133 mg/dL (74-106); Magnesium 1.8 mg/dL (1.8-2.4); NT PRO-BNP 125 pg/mL (<125); Potassium 3.4 mmol/L (3.5-5.1); Protein, Total 5.9 g/dL (6.4-8.2); Sodium Level 141 mmol/L (136-145); Troponin (Emerg Dept Use Only) < 0.02 ng/mL (0.0-0.045)
[2018-11-08] MEDS ORDERED: Levofloxacin500mg IV 500 MG/100 ML BAG IV ONE (01:27)
--- NOTE | 2018-11-08 01:50 | ER ---
Nurse's Notes [facility] Name: Jodi Trevino Age: 43 yrs Sex: Female : 1975 Arrival Date: 11/07/2018 Time: 23:34 Bed 3 Private MD: Diagnosis: Asthma;Hypoxemia;Acute upper respiratory infection, unspecified Presentation: 11/07 23:35 Presenting complaint: EMS states: Called for shortness of breath; On arrival of EMS, lp1 patient breathing 44 respirations per min, 90% on RA, wheezing, currently out of Albuterol nebs at home; Given treatments by EMS with some improvement; Patient began with cough yesterday and worsening congestion. Transition of care: patient was not received from another setting of care. Onset of symptoms was November 07, 2018. Risk Assessment: Do you want to hurt yourself or someone else? Patient reports no desire to harm self or others. Initial Sepsis Screen:. Care prior to arrival: Medication(s) given: Albuterol Neb x 2, Atrovent Neb x 1, Normal saline infusion, 200 ml Solu-Medrol 125mg IV IV initiated. 20 GA, in the right antecubital area, Oxygen administered. via a nebulizer mask. 23:35 Method Of Arrival: EMS: [facility] lp1 23:35 Acuity: MAGUE 2 lp1 23:35 Acuity: MAGUE 2 lp1 11/08 02:57 Initial Sepsis Screen: Does the patient meet any 2 criteria? No. Patient's initial lp1 sepsis screen is negative. Does the patient have a suspected source of infection? No. Patient's initial sepsis screen is negative. 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 - Social history:: Smoking status: Patient/guardian denies using tobacco. - Ebola Screening: : No symptoms or risks identified at this time. - Family history:: not pertinent. Screenin:44 Abuse screen: Denies threats or abuse. Denies injuries from another. Nutritional lp1 screening: No deficits noted. Tuberculosis screening: No symptoms or risk factors identified. Fall Risk None identified. Assessment: 23:42 General: Appears uncomfortable, Behavior is appropriate for age. Pain: Denies pain. lp1 Neuro: Level of Consciousness is awake, alert, obeys commands, Oriented to person, place, time, situation. Cardiovascular: Patient's skin is warm and dry. Rhythm is sinus tachycardia. Respiratory: Reports shortness of breath cough that is non-productive, dry, Airway is patent Trachea midline Respiratory effort is even, labored, Breath sounds with wheezes bilaterally. Onset: The symptoms/episode began/occurred gradually, the patient has moderate shortness of breath. GI: No signs and/or symptoms were reported involving the gastrointestinal system. : No signs and/or symptoms were reported regarding the genitourinary system. EENT: No signs and/or symptoms were reported regarding the EENT system. Derm: Skin is pink, warm \T\ dry. Musculoskeletal: Circulation, motion, and sensation intact. 11/08 01:00 Reassessment: Patient appears in no apparent distress at this time. Patient and/or lp1 family updated on plan of care and expected duration. Pain level reassessed. Patient continued with dry persistent cough Patient states feeling better. Patient states symptoms have improved. 02:00 Reassessment: Patient resting, eyes closed, respirations unlabored; aware of pending lp1 admission. 02:55 Reassessment: Provider notified of patient request to be discharged, does not want to lp1 be admitted to hospital; relief from cough at this time Patient denies pain at this time. Patient states feeling better. Patient states symptoms have improved. Respiratory: Respiratory effort is even, unlabored, Breath sounds are clear bilaterally. Vital Signs: 11/07 23:41 BP 123 / 66; Pulse 103; Resp 28; Temp 97.1(A); Pulse Ox 100% on Nebulizer Mask; Weight lp1 79.38 kg; Height 5 ft. 3 in. (160.02 cm); Pain 0/10; 11/08 01:00 BP 98 / 66; Pulse 102; Resp 19; Pulse Ox 99% on R/A; lp1 02:30 BP 119 / 75; Pulse 100; Resp 19; Pulse Ox 97% on R/A; lp1 11/07 23:41 Body Mass Index 31.00 (79.38 kg, 160.02 cm) lp1 ED Course: 11/07 23:34 Patient arrived in ED. aa1 23:35 Nuvia Mortensen, KIM is Primary Nurse. lp1 23:39 Triage completed. lp1 23:41 Arm band placed on left wrist. lp1 23:44 Patient has correct armband on for positive identification. Placed in gown. Bed in low lp1 position. Call light in reach. Side rails up X2. security monitor on. Pulse ox on. NIBP on. 23:44 Maintain EMS IV. Dressing intact. Site clean \T\ dry. Gauge \T\ site: 20g to R AC. lp 1 23:51 Angel Yepez MD is Attending Physician. rashmi 11/08 00:05 X-ray completed. Portable x-ray completed in exam room. Patient tolerated procedure kw well. 00:25 CXR XRAY In Process Unspecified. EDMS 01:48 Vj Baird MD is Hospitalizing Provider. rashmi 02:58 No provider procedures requiring assistance completed. lp1 03:41 IV discontinued, No redness/swelling at site. Pressure dressing applied. lp1 Administered Medications: 00:30 Drug: NS 0.9% 1000 ml Route: IV; Rate: 1 bolus; Site: right antecubital; lp1 03:18 Follow up: IV Status: Completed infusion; IV Intake: 1000ml lp1 00:30 Drug: Decadron - Dexamethasone 10 mg Route: IVP; Site: right antecubital; lp1 01:22 Follow up: Response: No adverse reaction; Marked relief of symptoms lp1 00:30 Drug: Xopenex 2.5 mg Route: Inhalation; lp1 01:22 Drug: levofloxacin 500 mg Volume: 100 ml; Route: IVPB; Infused Over: 60 mins; Site: lp1 right antecubital; 02:21 Follow up: IV Status: Completed infusion lp1 02:09 Drug: Tussionex Pennkinetic ER 5 ml Route: PO; lp1 03:19 Follow up: Response: Marked relief of symptoms lp1 02:09 Drug: Potassium Effervescent Tablet 25 mEq Route: PO; lp1 03:18 Follow up: Response: No adverse reaction lp1 02:20 Drug: Magnesium Sulfate 1 grams Route: IVPB; Infused Over: 1 hrs; Site: right lp1 antecubital; 03:40 Follow up: IV Status: Completed infusion lp1 03:19 Not Given (Physician Discretion): Xopenex 1.25 mg Inhalation once lp1 03:40 Drug: Albuterol 2.5 mg {Note: x2 per Provider .} Route: Inhalation; lp1 03:40 Follow up: Response: Medication administered at discharge. lp1 Intake: 03:18 IV: 1000ml; Total: 1000ml. lp1 Outcome: 01:49 Decision to Hospitalize by Provider. rashmi 03:27 Discharge ordered by . rashmi 03:41 Discharged to home ambulatory, with family. lp1 03:41 Condition: good 03:41 Discharge instructions given to patient, Instructed on discharge instructions, follow up and referral plans. medication usage, Demonstrated understanding of instructions, follow-up care, medications, Prescriptions given X 4. 03:41 Patient left the ED. lp1 Signatures: Dispatcher [employer] EDMS Mary Beth Tobias, KIM RN aa1 Angel Yepez MD MD cha Whitley, Kimberlee kw Pena, Laura, RN RN lp1 Corrections: (The following items were deleted from the chart) 11/07 23:45 23:42 Respiratory: Airway is patent Trachea midline Respiratory effort is even, lp1 labored, Breath sounds with wheezes bilaterally. Onset: The symptoms/episode began/occurred gradually, lp1 11/08 02:58 02 23:42 Respiratory: Reports shortness of breath cough that is non-productive, dry, lp1 Airway is patent Trachea midline Respiratory effort is even, labored, Breath sounds with wheezes bilaterally. Onset: The symptoms/episode began/occurred gradually, lp1
--- NOTE | 2018-11-08 01:50 | EDPHYS ---
Physician Documentation [facility] Name: Jodi Trevino Age: 43 yrs Sex: Female : 1975 Arrival Date: 11/07/2018 Time: 23:34 Bed 3 Private MD: ED Physician Angel Yepez HPI: 11/08 00:10 This 43 yrs old Female presents to ER via EMS with complaints of Breathing rashmi Difficulty. 00:10 The patient has shortness of breath at rest, with light activity. Onset: The rashmi symptoms/episode began/occurred 3 day(s) ago. Duration: The symptoms are continuous, and are steadily getting worse. The patient's shortness of breath is aggravated by coughing, is alleviated by rest, application of supplemental oxygen. Associated signs and symptoms: Pertinent positives: non-productive cough. Severity of symptoms: At their worst the symptoms were moderate in the emergency department the symptoms have improved moderately. The patient has experienced similar episodes in the past, multiple times. 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 - Social history:: Smoking status: Patient/guardian denies using tobacco. - Ebola Screening: : No symptoms or risks identified at this time. - Family history:: not pertinent. ROS: 11/08 00:10 Constitutional: Negative for fever, chills, and weight loss, Eyes: Negative for injury, rashmi pain, redness, and discharge, ENT: Negative for injury, pain, and discharge, Neck: Negative for injury, pain, and swelling, Cardiovascular: Negative for chest pain, palpitations, and edema, Abdomen/GI: Negative for abdominal pain, nausea, vomiting, diarrhea, and constipation, Back: Negative for injury and pain, : Negative for injury, bleeding, discharge, and swelling, MS/Extremity: Negative for injury and deformity, Skin: Negative for injury, rash, and discoloration, Neuro: Negative for headache, weakness, numbness, tingling, and seizure, Psych: Negative for depression, anxiety, suicide ideation, homicidal ideation, and hallucinations, Allergy/Immunology: Negative for hives, rash, and allergies, Endocrine: Negative for neck swelling, polydipsia, polyuria, polyphagia, and marked weight changes, Hematologic/Lymphatic: Negative for swollen nodes, abnormal bleeding, and unusual bruising. Respiratory: Positive for cough, shortness of breath, wheezing, inspiratory, expiratory. Exam: 00:10 Constitutional: This is a well developed, well nourished patient who is awake, alert, rashmi and in no acute distress. Head/Face: Normocephalic, atraumatic. Eyes: Pupils equal round and reactive to light, extra-ocular motions intact. Lids and lashes normal. Conjunctiva and sclera are non-icteric and not injected. Cornea within normal limits. Periorbital areas with no swelling, redness, or edema. ENT: Nares patent. No nasal discharge, no septal abnormalities noted. Tympanic membranes are normal and external auditory canals are clear. Oropharynx with no redness, swelling, or masses, exudates, or evidence of obstruction, uvula midline. Mucous membranes moist. Neck: Trachea midline, no thyromegaly or masses palpated, and no cervical lymphadenopathy. Supple, full range of motion without nuchal rigidity, or vertebral point tenderness. No Meningismus. Chest/axilla: Normal chest wall appearance and motion. Nontender with no deformity. No lesions are appreciated. Cardiovascular: Regular rate and rhythm with a normal S1 and S2. No gallops, murmurs, or rubs. Normal PMI, no JVD. No pulse deficits. Abdomen/GI: Soft, non-tender, with normal bowel sounds. No distension or tympany. No guarding or rebound. No evidence of tenderness throughout. Back: No spinal tenderness. No costovertebral tenderness. Full range of motion. Female : Normal external genitalia. Skin: Warm, dry with normal turgor. Normal color with no rashes, no lesions, and no evidence of cellulitis. MS/ Extremity: Pulses equal, no cyanosis. Neurovascular intact. Full, normal range of motion. Neuro: Awake and alert, GCS 15, oriented to person, place, time, and situation. Cranial nerves II-XII grossly intact. Motor strength 5/5 in all extremities. Sensory grossly intact. Cerebellar exam normal. Normal gait. Psych: Awake, alert, with orientation to person, place and time. Behavior, mood, and affect are within normal limits. 00:10 Respiratory: mild respiratory distress is noted, Respirations: normal, Breath sounds: bronchial sounds, rhonchi, wheezing: inspiratory expiratory Vital Signs: 11/07 23:41 BP 123 / 66; Pulse 103; Resp 28; Temp 97.1(A); Pulse Ox 100% on Nebulizer Mask; Weight lp1 79.38 kg; Height 5 ft. 3 in. (160.02 cm); Pain 0/10; 11/08 01:00 BP 98 / 66; Pulse 102; Resp 19; Pulse Ox 99% on R/A; lp1 02:30 BP 119 / 75; Pulse 100; Resp 19; Pulse Ox 97% on R/A; lp1 11/07 23:41 Body Mass Index 31.00 (79.38 kg, 160.02 cm) lp1 MDM: 11/07 23:51 Patient medically screened. [place] 11/08 00:12 Data reviewed: vital signs, nurses notes, lab test result(s), EKG, radiologic studies, rashmi doppler, plain films, ultrasound. 11/08 00:09 Order name: Basic Metabolic Panel; Complete Time: 02:01 [place] 11/08 00:09 Order name: CBC with Diff; Complete Time: 02:01 [place] 11/08 00:09 Order name: LFT's; Complete Time: 02:01 [place] 11/08 00:09 Order name: Magnesium; Complete Time: 02:01 [place] 11/08 00:09 Order name: NT PRO-BNP; Complete Time: 02:01 [place] 11/08 00:09 Order name: PT-INR; Complete Time: 02:01 [place] 11/07 23:55 Order name: CXR XRAY aa1 11/08 00:09 Order name: Troponin (emerg Dept Use Only); Complete Time: 02:01 [place] 11/08 00:09 Order name: Blood Culture Adult (2) [place] 11/08 00:09 Order name: Influenza Screen (a \T\ B); Complete Time: 02:01 [place] 11/08 00:09 Order name: EKG; Complete Time: 00:12 [place] 11/08 00:09 Order name: Cardiac monitoring; Complete Time: 00:13 [place] 11/08 00:09 Order name: EKG - Nurse/Tech; Complete Time: 00:12 [place] 11/08 00:09 Order name: IV Saline Lock; Complete Time: 00:11/08 00:09 Order name: Labs collected and sent; Complete Time: :11/08 00:09 Order name: O2 Per Protocol; Complete Time: 00:11/08 00:09 Order name: O2 Sat Monitoring; Complete Time: 00:11/08 02:49 Order name: CONS Pharmacy Consult EDMS Administered Medications: 00:30 Drug: NS 0.9% 1000 ml Route: IV; Rate: 1 bolus; Site: right antecubital; lp1 03:18 Follow up: IV Status: Completed infusion; IV Intake: 1000ml lp1 00:30 Drug: Decadron - Dexamethasone 10 mg Route: IVP; Site: right antecubital; lp1 01:22 Follow up: Response: No adverse reaction; Marked relief of symptoms lp1 00:30 Drug: Xopenex 2.5 mg Route: Inhalation; lp1 01:22 Drug: levofloxacin 500 mg Volume: 100 ml; Route: IVPB; Infused Over: 60 mins; Site: lp1 right antecubital; 02:21 Follow up: IV Status: Completed infusion lp1 02:09 Drug: Tussionex Pennkinetic ER 5 ml Route: PO; lp1 03:19 Follow up: Response: Marked relief of symptoms lp1 02:09 Drug: Potassium Effervescent Tablet 25 mEq Route: PO; lp1 03:18 Follow up: Response: No adverse reaction lp1 02:20 Drug: Magnesium Sulfate 1 grams Route: IVPB; Infused Over: 1 hrs; Site: right lp1 antecubital; 03:40 Follow up: IV Status: Completed infusion lp1 03:19 Not Given (Physician Discretion): Xopenex 1.25 mg Inhalation once lp1 03:40 Drug: Albuterol 2.5 mg {Note: x2 per Provider .} Route: Inhalation; lp1 03:40 Follow up: Response: Medication administered at discharge. lp1 Disposition: 11/08/18 03:27 Discharged to Home. Impression: Asthma, Hypoxemia, Acute upper respiratory infection, unspecified. - Condition is Stable. - Discharge Instructions: Asthma, Adult, Upper Respiratory Infection, Adult, Cool Mist Vaporizer, Asthma, Adult, [id number]-[id number]. - Prescriptions for Albuterol Sulfate 2.5 mg /3 mL (0.083 %) Inhalation Solution for Nebulization - inhale 1 unit by NEBULIZATION route every 8 hours As needed; 1 box. Zithromax Z- Herbert 250 mg Oral Tablet - take 1 tablet by ORAL route as directed for 5 days Day 1 - take two (2) tablets one time. Day 2, 3, 4 , 5 take one (1) tablet once daily.; 6 tablet. Prednisone 20 mg Oral Tablet - take 2 tablet by ORAL route once daily for 5 days; 10 tablet. Albuterol Sulfate 90 mcg/actuation - inhale 1-2 puff by INHALATION route every 4-6 hours; 1 Inhaler. - Medication Reconciliation Form, Thank You Letter, Antibiotic Education, Prescription Opioid Use form. - Follow up: Private Physician; When: 2 - 3 days; Reason: Recheck today's complaints, Continuance of care, Re-evaluation by your physician. - Problem is new. - Symptoms have improved. Signatures: Dispatcher [employer] EDVT Angel Yepez MD MD cha Pena, Laura, RN RN lp1 Corrections: (The following items were deleted from the chart) 03:26 01:49 Hospitalization Ordered by Vj Baird MD for Observation. Preliminary [place] diagnosis is Dyspnea; Asthma; Hypoxemia. Bed requested for Telemetry/MedSurg (observation). Status is Observation. Condition is Fair. Problem is new. Symptoms have improved. UTI on Admission? No. rashmi 03:41 03:27 11/08/2018 03:27 Discharged to Home. Impression: Asthma; Hypoxemia; Acute upper lp1 respiratory infection, unspecified. Condition is Stable. Forms are Medication Reconciliation Form, Thank You Letter, Antibiotic Education, Prescription Opioid Use. Follow up: Private Physician; When: 2 - 3 days; Reason: Recheck today's complaints, Continuance of care, Re-evaluation by your physician. Problem is new. Symptoms have improved. rashmi
[2018-11-08] MEDS ORDERED: LEVALBUTEROL 0.63 MG/3 ML NEB ONE (02:15)
[2018-11-08] MEDS ORDERED: HYDROCODONE/CHLORPHEN 5 ML/OSYR ONE (02:15)
[2018-11-08] MEDS ORDERED: POTASSIUM 25 MEQ EFFERV TAB ONE (02:15)
[2018-11-08] MEDS ORDERED: MAGNESIUM SULFATE 1 gm IVPB 1 GM/100 ML BAG IV ONE (02:15)
[2018-11-08] MEDS ORDERED: ACETAMINOPHEN 500 MG TAB PO PRN (02:46)
[2018-11-08] MEDS ORDERED: ONDANSETRON 4 MG/2 ML VIAL IV PRN (02:46)
[2018-11-08] MEDS ORDERED: MORPHINE 2 MG/ML SYR IV PRN (02:46)
[2018-11-08] MEDS ORDERED: ALBUTEROL 2.5 MG/3 ML NEB SOL NEB SCH (03:00)
[2018-11-08] MEDS ORDERED: METHYLPREDNISOLONE 125 MG INJ IV SCH (03:00)
[2018-11-08] MEDS ORDERED: NA CHLORIDE 0.9% 1,000 ML IV SCH (03:00)
[2018-11-08] MEDS ORDERED: IPRATROPIUM BROM 0.5MG/2.5ML NEB SCH (03:00)
[2018-11-08] MEDS ORDERED: ALBUTEROL 2.5 MG/3 ML NEB SOL ONE (03:27)
--- NOTE | 2018-11-08 07:03 | RAD REPORT ---
EXAM DESCRIPTION: RAD - Chest Single View - 11/08/2018 12:08 am CLINICAL HISTORY: Cough, shortness of breath COMPARISON: October 27, 2018 TECHNIQUE: AP portable chest image was obtained 0003 hours . FINDINGS: No focal mass, consolidation or failure finding. Interstitial markings at each base are mi ldly prominent but not clearly different. No progressive finding since October 27. Heart and vascul ature are normal. No measurable pleural effusion and no pneumothorax. No acute bony abnormality seen. No acute aortic findings suspected. IMPRESSION: No acute cardiopulmonary process.
--- NOTE | 2018-11-08 09:49 | EKG ---
Test Date: 2018-11-07 Test Time: 23:37:35 [facility] Examiner: OLIVE MEASUREMENT RESULTS: Intervals: Rate: 91 TX: 120 QRSD: 90 QT: 390 QTc: 479 [place]: P: 70 TX: 120 QRS: 43 T: 60 INTERPRETIVE STATEMENTS: Normal sinus rhythm with sinus arrhythmia Normal ECG Compared to ECG 10/27/2018 12:00:43 No significant changes Electronically Signed On 11-08-18 08:33:29 CASCARA BARK CUTTER by Melecio Madden
== END 2018-11-08 03:41 | disposition home or self-care (01) ==
LOC: ER 23:30 → UNDOADMOB 11-08 02:47 → ERHOLD 11-08 02:47 → ER 11-08 03:41
DX: J45.909 Unspecified asthma, uncomplicated (principal); R09.02 Hypoxemia; J06.9 Acute upper respiratory infection, unspecified
CPT/HCPCS: 36415; 71045; 80048; 80076; 83735; 83880; 84484; 85025; 85610; 87040; 87804; 93005; 96361; 96365; 96375; 99285; J3475; J7030

== ENCOUNTER 2019-03-16 23:41 | Emergency (ER) | payer SELFPAY ==
--- NOTE | 2019-03-17 00:27 | EDPHYS ---
Physician Documentation [facility] Name: Jodi Trevino Age: 43 yrs Sex: Female : 1975 Arrival Date: 03/16/2019 Time: 23:43 Bed 2 Private MD: Kiko Vail T ED Physician Colby Graves HPI: 03/17 00:13 This 43 yrs old Female presents to ER via Ambulatory with complaints of Neck pkl Pain, <24hrs Old, Shoulder Pain, Arm Pain. 00:13 The patient or guardian complains of pain, that is acute. The symptoms are located back pkl of neck. Onset: The symptoms/episode began/occurred 2 week(s) ago. Associated signs and symptoms: Pertinent positives: Paresthesias of the left upper extremity. Patient said she had CT Scan head and neck few months ago and showed degenerative changes of the cervical spines. 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 - Social history:: Smoking status: Patient uses tobacco products, Vape. - Ebola Screening: : No symptoms or risks identified at this time. ROS: 00:13 Eyes: Negative for injury, pain, redness, and discharge, ENT: Negative for injury, pkl pain, and discharge. 00:13 Neck: Positive for pain with movement. 00:13 Cardiovascular: Negative for chest pain. 00:13 Respiratory: Negative for cough, shortness of breath. 00:13 Abdomen/GI: Negative for abdominal pain, nausea, vomiting, and diarrhea. 00:13 Back: Negative for acute changes. 00:13 : Negative for urinary symptoms. 00:13 MS/extremity: Positive for paresthesias, of the left upper extremity. 00:13 Skin: Negative for rash. 00:13 Neuro: Positive for numbness, of the left upper extremity. Exam: 00:13 Head/Face: Normocephalic, atraumatic. Eyes: Pupils equal round and reactive to light, pkl extra-ocular motions intact. Lids and lashes normal. Conjunctiva and sclera are non-icteric and not injected. Cornea within normal limits. Periorbital areas with no swelling, redness, or edema. ENT: Nares patent. No nasal discharge, no septal abnormalities noted. Tympanic membranes are normal and external auditory canals are clear. Oropharynx with no redness, swelling, or masses, exudates, or evidence of obstruction, uvula midline. Mucous membranes moist. 00:13 Neck: ROM/movement: pain, that is moderate, with rotation to the left. 00:13 Chest/axilla: Exam negative for acute changes. 00:13 Cardiovascular: Rate: normal, Rhythm: regular. 00:13 Respiratory: the patient does not display signs of respiratory distress, Respirations: normal, Breath sounds: are clear throughout. 00:13 Abdomen/GI: Bowel sounds: normal, Palpation: abdomen is soft and non-tender, in all quadrants. 00:13 Back: Exam negative for acute changes. 00:13 : Exam negative for acute changes. 00:13 Musculoskeletal/extremity: Extremities: grossly normal except: noted in the left upper extremity: pain, tingling sensation left upper extremity. 00:13 Neuro: Orientation: is normal, Mentation: is normal, Cranial nerves: grossly normal, Motor: is normal. Vital Signs: 03/16 23:54 BP 131 / 85; Pulse 96; Resp 18; Temp 98.2; Pulse Ox 98% on R/A; Weight 77.11 kg; Height ms 5 ft. 3 in. (160.02 cm); Pain 9/10; 23:54 Body Mass Index 30.11 (77.11 kg, 160.02 cm) ms MDM: 03/17 00:08 Patient medically screened. pkl 00:13 Data reviewed: vital signs, nurses notes. ED course: Advised patient to follow up with pkl Dr. Vail ( PCP ) in 2 to 3 days for MRI cervical spines. Patient understood instructions. Administered Medications: 00:26 Drug: Tylenol #3 (300 mg-30 mg) 2 tabs Route: PO; tl1 00:35 Follow up: Response: No adverse reaction; No change in condition; Medication tl1 administered at discharge. Disposition: 03/17/19 00:26 Discharged to Home. Impression: Cervical spondylosis. - Condition is Stable. - Prescriptions for Tylenol- Codeine #3 300-30 mg Oral Tablet - take 1 tablet by ORAL route every 6 hours As needed; 30 tablet. - Medication Reconciliation Form, Thank You Letter, Antibiotic Education, Prescription Opioid Use form. - Follow up: Kiko Vail MD; When: 2 - 3 days; Reason: Re-evaluation by your physician. - Problem is new. - Symptoms are unchanged. Signatures: Colby Graves MD MD pkl Ayleen Gurrola RN RN tl1 Belem Hernandez RN RN tl2 Corrections: (The following items were deleted from the chart) 00:36 00:26 03/17/2019 00:26 Discharged to Home. Impression: Cervical spondylosis. Condition tl1 is Stable. Forms are Medication Reconciliation Form, Thank You Letter, Antibiotic Education, Prescription Opioid Use. Follow up: Kiko Vail; When: 2 - 3 days; Reason: Re-evaluation by your physician. Problem is new. Symptoms are unchanged. pkl
--- NOTE | 2019-03-17 00:27 | ER ---
Nurse's Notes [facility] Name: Jodi Trevino Age: 43 yrs Sex: Female : 1975 Arrival Date: 03/16/2019 Time: 23:43 Bed 2 Private MD: Kiko Vail T Diagnosis: Cervical spondylosis Presentation: 03/17 00:01 Presenting complaint: Patient states: pain in neck for 2 weeks, it is worse now and tl2 travels down left shoulder and left arm, hand feels tingling. Pt denies any other symptoms. Transition of care: patient was not received from another setting of care. Onset of symptoms was March 01, 2019. Risk Assessment: Do you want to hurt yourself or someone else? Patient reports no desire to harm self or others. Initial Sepsis Screen: Does the patient meet any 2 criteria? No. Patient's initial sepsis screen is negative. Does the patient have a suspected source of infection? No. Patient's initial sepsis screen is negative. Care prior to arrival: None. 00:01 Method Of Arrival: Ambulatory tl2 00:01 Acuity: MAGUE 4 tl2 Triage Assessment: 00:03 General: Appears in no apparent distress. uncomfortable, Behavior is calm, cooperative, tl2 appropriate for age. Pain: Complains of pain in neck Pain radiates to left shoulder, left arm. Neuro: Level of Consciousness is awake, alert, obeys commands, Oriented to person, place, time, situation. Cardiovascular: Denies chest pain. Respiratory: Airway is patent Respiratory effort is even, unlabored, Respiratory pattern is regular, symmetrical. GI: No signs and/or symptoms were reported involving the gastrointestinal system. Derm: Skin is pink, warm \T\ dry. Musculoskeletal: Circulation, motion, and sensation intact. Range of motion: limited in neck. 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 - Social history:: Smoking status: Patient uses tobacco products, Vape. - Ebola Screening: : No symptoms or risks identified at this time. Screenin:05 Abuse screen: Denies threats or abuse. Nutritional screening: No deficits noted. tl2 Tuberculosis screening: No symptoms or risk factors identified. Fall Risk None identified. Assessment: 00:33 General: Appears. tl1 00:34 Reassessment: see triage assessment. Neuro: Level of Consciousness is awake, alert, tl1 obeys commands, Oriented to person, place, time, situation. Vital Signs: 03/16 23:54 BP 131 / 85; Pulse 96; Resp 18; Temp 98.2; Pulse Ox 98% on R/A; Weight 77.11 kg; Height ms 5 ft. 3 in. (160.02 cm); Pain 9/10; 23:54 Body Mass Index 30.11 (77.11 kg, 160.02 cm) ms ED Course: 23:43 Patient arrived in ED. am2 23:44 Kiko Vail MD is Private Physician. am2 03/17 00:02 Triage completed. tl2 00:03 Arm band placed on right wrist. tl2 00:05 Patient has correct armband on for positive identification. Bed in low position. Call tl2 light in reach. Side rails up X 1. 00:07 Colby Graves MD is Attending Physician. pkl 00:25 Kiko Vail MD is Referral Physician. pkl 00:33 Ayleen Gurrola, KIM is Primary Nurse. tl1 00:34 No provider procedures requiring assistance completed. Patient did not have IV access tl1 during this emergency room visit. Administered Medications: 00:26 Drug: Tylenol #3 (300 mg-30 mg) 2 tabs Route: PO; tl1 00:35 Follow up: Response: No adverse reaction; No change in condition; Medication tl1 administered at discharge. Outcome: 00:26 Discharge ordered by MD. pkl 00:35 Discharged to home ambulatory, with family. tl1 00:35 Condition: good 00:35 Discharge instructions given to patient, Instructed on discharge instructions, follow up and referral plans. Demonstrated understanding of instructions, follow-up care, medications, Prescriptions given X 2. 00:36 Patient left the ED. tl1 Signatures: Colby Graves MD MD pkl Riri Cline ms Ayleen Gurrola, KIM RN tl1 Belem Hernandez RN RN tl2 Fidel Somersanda am2
[2019-03-17] MEDS ORDERED: CODEINE 30MG/APAP 300MG TAB ONE (00:31)
== END 2019-03-17 00:36 | disposition home or self-care (01) ==
LOC: ER 23:41
DX: M47.892 Other spondylosis, cervical region (principal); J45.909 Unspecified asthma, uncomplicated; Z72.0 Tobacco use
CPT/HCPCS: 99283

== ENCOUNTER 2023-02-03 15:19 | Emergency (ER) | payer OTHER ==
--- NOTE | 2023-02-03 16:01 | RAD REPORT ---
EXAM DESCRIPTION: US - Extremity Venous Uni Ltd - 02/03/2023 3:55 pm CLINICAL HISTORY: Pain;Swelling Leg swelling and edema. COMPARISON: No comparisons FINDINGS: Right lower extremity venous system was interrogated with Doppler technique. Normal flow, compressibility and augmentation was noted. There is no DVT present. IMPRESSION: No evidence of right lower extremity deep venous thrombosis.
--- NOTE | 2023-02-03 16:07 | ER ---
Nurse's Notes [facility] Name: Jodi Trevino Age: 47 yrs Sex: Female : 1975 Arrival Date: 02/03/2023 Time: 15:19 Bed 9 Private MD: Diagnosis: Localized edema Presentation: 02/03 15:25 Chief complaint: Right ankle pain and swelling x 1 week . Denies injury. Coronavirus hb screen: At this time, the client does not indicate any symptoms associated with coronavirus-19. Ebola Screen: No symptoms or risks identified at this time. Risk Assessment: Do you want to hurt yourself or someone else? Patient reports no desire to harm self or others. 15:25 Method Of Arrival: Ambulatory hb 15:25 Acuity: MAGUE 3 hb 15:26 Initial Sepsis Screen: Does the patient meet any 2 criteria? No. Patient's initial hb sepsis screen is negative. Does the patient have a suspected source of infection? No. Patient's initial sepsis screen is negative. Onset of symptoms was January 26, 2023. Triage Assessment: 15:35 General: Appears in no apparent distress. Behavior is calm, cooperative. Pain: Pain hb currently is 9 out of 10 on a pain scale. Neuro: Level of Consciousness is awake, alert, obeys commands, Oriented to person, place, time, situation. Cardiovascular: Patient's skin is warm and dry. Respiratory: Respiratory effort is even, unlabored, Respiratory pattern is regular, symmetrical. Historical: - Allergies: 15:27 NKA; hb - PMHx: 15:27 Asthma; hb - Immunization history:: Adult Immunizations up to date. - Social history:: Smoking status: Reported history of juuling and/or vaping. Screenin:35 [facility] ED Fall Risk Assessment (Adult) Score/Fall Risk Level 0 - 2 = Low Risk hb Oriented to surroundings, Maintained a safe environment. Abuse screen: Denies threats or abuse. Denies injuries from another. Nutritional screening: No deficits noted. Tuberculosis screening: No symptoms or risk factors identified. Assessment: 15:35 General: See triage assessment . hb Vital Signs: 15:26 BP 151 / 102; Pulse 102; Resp 16; Temp 98.3; Pulse Ox 100% on R/A; Weight 88.45 kg; hb Height 5 ft. 3 in. ; Pain 9/10; 15:26 Body Mass Index 34.54 (88.45 kg, 160.02 cm) hb 15:26 Pain Scale: Adult hb ED Course: 15:21 Patient arrived in ED. ts1 15:22 Car[facility] Murcia [facility]C [facility] kb 15:22 Kenny Boss MD is Attending Physician. kb 15:26 Triage completed. hb 15:27 Arm band placed on. hb 15:35 Patient has correct armband on for positive identification. hb 15:57 US Extremity Venous Unilateral Ltd In Process Unspecified. EDMS Administered Medications: No medications were administered Medication: 15:35 VIS not applicable for this client. hb Outcome: 16:07 Discharge ordered by . kb 16:36 Patient left the ED. hb Signatures: Dispatcher [employer] EDMS Carie Murcia FNP-C FNP-Ckb Baxter, Heather RN RN hb Roxana Guzman, PAS PAS ts1 Corrections: (The following items were deleted from the chart) 15:27 15:25 Chief complaint: Right ankle pain and swelling x 3 days. Denies injury. hb hb
--- NOTE | 2023-02-03 16:07 | EDPHYS ---
Physician Documentation [facility] Name: Jodi Trevino Age: 47 yrs Sex: Female : 1975 Arrival Date: 02/03/2023 Time: 15:19 Bed 9 Private MD: ED Physician Kenny Boss HPI: 02/03 15:29 This 47 yrs old Female presents to ER via Ambulatory with complaints of Ankle kb Swelling. 15:29 The patient presents with pain, swelling. The complaints affect the right ankle. Onset: kb The symptoms/episode began/occurred 1 week(s) ago. Context: The problem was sustained at home, resulted from an unknown cause, The patient can fully bear weight on the affected extremity. the patient is able to ambulate. Associated signs and symptoms: Pertinent positives: swelling, Pertinent negatives: calf tenderness, fever, nausea, numbness, rash, tingling, vomiting, warmth, weakness. Modifying factors: The symptoms are alleviated by nothing, the symptoms are aggravated by nothing. Severity of symptoms: At their worst the symptoms were moderate, in the emergency department the symptoms are unchanged. The patient has not experienced similar symptoms in the past. The patient has been recently seen at an urgent care, this week, for similar complaints, X-rays were performed. Historical: - Allergies: 15:27 NKA; hb - PMHx: 15:27 Asthma; hb - Immunization history:: Adult Immunizations up to date. - Social history:: Smoking status: Reported history of juuling and/or vaping. ROS: 15:28 Constitutional: Negative for fever, chills, and weight loss. kb 15:28 MS/extremity: Positive for pain, swelling, of the anterior aspect of right ankle and dorsum of right foot. 15:28 All other systems are negative. Exam: 15:28 Constitutional: This is a well developed, well nourished patient who is awake, alert, kb and in no acute distress. Head/Face: Normocephalic, atraumatic. ENT: Moist Mucous membranes Respiratory: Respirations even and unlabored. No increased work of breathing. Talking in full sentences Skin: Warm, dry with normal turgor. Normal color. Neuro: Awake and alert, GCS 15, oriented to person, place, time, and situation. Moves all extremities. Normal gait. 15:28 Musculoskeletal/extremity: Extremities: grossly normal except: noted in the dorsum of right foot and anterior aspect of right ankle: pain, swelling, ROM: intact in all extremities, Circulation is intact in all extremities. Sensation intact. Weight bearing: able to fully bear weight, without difficulty. Vital Signs: 15:26 BP 151 / 102; Pulse 102; Resp 16; Temp 98.3; Pulse Ox 100% on R/A; Weight 88.45 kg; hb Height 5 ft. 3 in. ; Pain 9/10; 15:26 Body Mass Index 34.54 (88.45 kg, 160.02 cm) hb 15:26 Pain Scale: Adult hb MDM: 15:24 Patient medically screened. kb 15:29 Differential diagnosis: sprain, gout, dvt, cellulitis. Data reviewed: vital signs, kb nurses notes. 16:03 Counseling: I had a detailed discussion with the patient and/or guardian regarding: the kb historical points, exam findings, and any diagnostic results supporting the discharge/admit diagnosis, radiology results, the need for outpatient follow up, a family practitioner, to return to the emergency department if symptoms worsen or persist or if there are any questions or concerns that arise at home. 16:07 ED course: Pt states she has had other joints swell like this, but UC had her concerned kb about a blood clot so she just wanted to be sure. States her PCP thinks she may have an autoimmune disorder causing this swelling. 02/03 15:27 Order name: US Extremity Venous Unilateral Ltd; Complete Time: 16:03 kb Administered Medications: No medications were administered Disposition: 16:48 Co-signature as Attending Physician, Kenny Boss MD I agree with the assessment and kdr plan of care. Disposition Summary: 02/03/23 16:07 Discharge Ordered Location: Home kb Condition: Stable kb Diagnosis - Localized edema kb Followup: kb - With: Emergency Department - When: As needed - Reason: Worsening of condition Followup: kb - With: Private Physician - When: 2 - 3 days - Reason: Recheck today's complaints, Continuance of care, Re-evaluation by your physician Discharge Instructions: - Discharge Summary Sheet kb - Edema, [id number] kb Forms: - Medication Reconciliation Form kb - Thank You Letter kb - Antibiotic Education kb - Prescription Opioid Use kb Signatures: Dispatcher [employer] EDMS Carie Murcia FNP-C WILDLIFE CONTROL AGENT-Ckb Kenny Boss MD MD kdr Juliette New, RN RN hb
--- OUTSIDE RECORDS SUMMARY | 2023-02-03 16:53 | XMS REPORT | Continuity of Care Document ---
:1975 Author Organization [facility] t Address [address] [place] [address] Care Team Providers Name Role Phone JOAO SAAVEDRA Attending Clinician Unavailable Payers Payer Name Policy Type Policy Number Effective Date Expiration Date Chele CARTAGENA [id number] 2020 HEALTH 00:00:00 Problems This patient has no known problems. Allergies, Adverse Reactions, Alerts Allergy Allergy Status Severity Reaction(s) Onset Inactive Treating Comm ents Source Name Type Date Date Clinician NO KNOWN Drug Active [facility] Medications This patient has no known medications. Procedures This patient has no known procedures. Encounters Start End Encounter Admission Attending Care Care Encounter Source Date/Time Date/Time Type Type Clinicians Facility Department ID 2020-07-22 2020-07-22 Outpatient R [facility] [id number] [facility] 10:40:00 10:40:00 [facility] 2020-07-22 2020-07-22 Outpatient R [facility] [id number] [facility] 10:40:00 10:40:00 [id number] [facility] 2020-07-20 2020-07-20 Outpatient R [facility] [id number] [facility] 10:20:00 10:20:00 [id number] [facility] 2020-07-18 2020-07-18 Outpatient R [facility] [id number] Univers 13:20:00 13:20:00 [id number] [facility] 2020-07-18 2020-07-18 Outpatient R QUENTIN [facility] [id number] [facility] 10:20:00 10:20:00 JOAO [facility] Results This patient has no known results.
[2023-02-03 16:54] VITALS: BP 151/102; TEMP 98.3; O2SAT 100
== END 2023-02-03 16:36 | disposition home or self-care (01) ==
LOC: ER 15:19
DX: R60.0 Localized edema (principal)
CPT/HCPCS: 93971; 99282